=== PATIENT | male | born 1995 | race African-American/Black ===

== ENCOUNTER 2017-03-13 04:08 | Emergency (ER) | payer BC ==
[~2017-03-13] VITALS: Ht 185.4 cm; Wt 80.0 kg
[2017-03-13 04:10] VITALS: BP 130/66; PULSE 66; RESP 16; TEMP 98.5; O2SAT 100
[2017-03-13] MEDS ORDERED: SODIUM CHLOR 0.9% 1000 ML INJ 1,000 ML IV SCH (04:41)
--- NOTE | 2017-03-13 04:43 | PD ---
HPI Chief Complaint: GI Complaint Time Seen by Provider: 04:37 Travel History International Travel<30 days: No Contact w/Intl Traveler<30days: No Traveled to known affect area: No History of Present Illness HPI 21-year-old male here for evaluation of nausea and vomiting. Patient reports multiple episodes of vomiting since 9:30 PM yesterday evening. Emesis first consisted of food, now is bilious, nonbloody. He is also had a small amount of diarrhea. Reports that his younger niece and nephew at home has similar symptoms 2 days ago. He is having some intermittent epigastric discomfort. He drink alcohol occasionally, hasn't drink in a couple of days. He smokes marijuana occasionally. No other illicit drugs. No history of abdominal surgeries. PFSH Past Medical History Medical History: Denies Significant Hx Cancer: No Cardiovascular Problems: No Developmental Delay: No Diabetes: No Diminished Hearing: No Glaucoma: No Hepatitis: No Hiatal Hernia: No Hypertension: No Respiratory: No Immunizations Current: Yes Thyroid Disease: No Tetanus Vaccination: Unknown Influenza Vaccination: No Past Surgical History Surgical History: No Previous Surgery Pacemaker: No Other Surgery: No Social History Alcohol Use: Yes (OCC) Tobacco Use: No Substance Use: Yes (MARIJUANA) Allergies-Medications (Allergen,Severity, Reaction): Coded Allergies: No Known Allergies (Unverified , 03/13/17) Reported Meds & Prescriptions Reported Meds & Active Scripts Active Zofran Odt (Ondansetron Odt) 4 Mg Tab 4 Mg SL Q8HR PRN Review of Systems Except as stated in HPI: all other systems reviewed are Neg Physical Exam Narrative GENERAL: Well-developed, well-nourished, comfortable, no acute distress. SKIN: Focused skin assessment warm/dry. HEAD: Atraumatic. Normocephalic. EYES: Pupils equal and round. No scleral icterus. No injection or drainage. ENT: Mucous membranes pink and dry. NECK: Trachea midline. No JVD. CARDIOVASCULAR: Regular rate and rhythm. RESPIRATORY: No accessory muscle use. Clear to auscultation. Breath sounds equal bilaterally. GASTROINTESTINAL: Abdomen soft, non-tender, nondistended. Normal bowel sounds. MUSCULOSKELETAL: No obvious deformities. No clubbing. No cyanosis. No edema. NEUROLOGICAL: Awake and alert. No obvious cranial nerve deficits. Motor grossly within normal limits. Normal speech. PSYCHIATRIC: Appropriate mood and affect; insight and judgment normal. Data Data Last Documented VS Vital Signs Date Time Temp Pulse Resp B/P Pulse Ox O2 Delivery O2 Flow Rate FiO2 03/13/17 04:10 98.5 66 16 130/66 100 Orders Complete Blood Count With Diff (03/13/17 04:41) Comprehensive Metabolic Panel (03/13/17 04:41) Lipase (03/13/17 04:41) Iv Access Insert/Monitor (03/13/17 04:41) Ecg Monitoring (03/13/17 04:41) Oximetry (03/13/17 04:41) Ondansetron Inj (Zofran Inj) (03/13/17 04:45) Sodium Chlor 0.9% 1000 Ml Inj (Ns 1000 M (03/13/17 04:41) Sodium Chloride 0.9% Flush (Ns Flush) (03/13/17 04:45) Labs Laboratory Tests Test 03/13/17 04:45 White Blood Count 12.8 TH/MM3 Red Blood Count 5.63 MIL/MM3 Hemoglobin 14.2 GM/DL Hematocrit 44.1 % Mean Corpuscular Volume 78.4 FL Mean Corpuscular Hemoglobin 25.3 PG Mean Corpuscular Hemoglobin 32.3 % Concent Red Cell Distribution Width 15.2 % Platelet Count 192 TH/MM3 Mean Platelet Volume 8.6 FL Neutrophils (%) (Auto) 89.6 % Lymphocytes (%) (Auto) 3.3 % Monocytes (%) (Auto) 6.8 % Eosinophils (%) (Auto) 0.1 % Basophils (%) (Auto) 0.2 % Neutrophils # (Auto) 11.4 TH/MM3 Lymphocytes # (Auto) 0.4 TH/MM3 Monocytes # (Auto) 0.9 TH/MM3 Eosinophils # (Auto) 0.0 TH/MM3 Basophils # (Auto) 0.0 TH/MM3 CBC Comment DIFF FINAL Differential Comment Sodium Level 140 MEQ/L Potassium Level 4.1 MEQ/L Chloride Level 106 MEQ/L Carbon Dioxide Level 23.8 MEQ/L Anion Gap 10 MEQ/L Blood Urea Nitrogen 14 MG/DL Creatinine 0.86 MG/DL Estimat Glomerular Filtration 136 ML/MIN Rate Random Glucose 116 MG/DL Calcium Level 9.3 MG/DL Total Bilirubin 1.2 MG/DL Aspartate Amino Transf 22 U/L (AST/SGOT) Alanine Aminotransferase 29 U/L (ALT/SGPT) Alkaline Phosphatase 59 U/L Total Protein 7.7 GM/DL Albumin 4.2 GM/DL Lipase 94 U/L MDM Medical Decision Making Medical Screen Exam Complete: Yes Emergency Medical Condition: Yes Differential Diagnosis Gastroenteritis, dehydration, metabolic abnormality, cannabinoid hyperemesis syndrome, acute intra-abdominal pathology unlikely Narrative Course Vital signs show heart rate 66, blood pressure 130/66, pulse ox 100% on room air , oral temp of 98.5 from high. CBC shows WBC 12.8, hemoglobin 14.2, hematocrit 44.1, platelets 192. Neutrophils 89%. CMP is unremarkable. Patient was given a liter of IV fluids and IV Zofran and is feeling much better. He is tolerating clear liquids orally. His abdominal exam is benign. I do not believe that there is an acute surgical intra-abdominal process to warrant imaging at this time. Patient is likely suffering from a gastric enteritis. He is stable for discharge home with follow-up with his primary care physician this week. He was informed on when to return to the emergency department. He verbalizes understanding and agreement with plan. Diagnosis Primary Impression: Acute gastroenteritis Referrals: Primary Care Physician 3 days Additional Instructions: Follow-up with your primary care physician this week. See hydrated with plenty of fluids. Return to the emergency department for worsening symptoms or any other concerns. Scripts Ondansetron Odt (Zofran Odt)4 Mg Tab4 Mg SL Q8HR PRN (Nausea/Vomiting) #20 TAB Ref 0 Prov:Hernandez Hill MD 03/13/17 Ondansetron Odt (Zofran Odt)4 Mg Tab4 Mg SL Q8HR PRN (Nausea/Vomiting) #20 TAB Ref 0 Prov:Hernandez Hill MD 03/13/17 Disposition: 01 DISCHARGE HOME Condition: Stable Hernandez Hill MD Mar 13, 2017 04:43 Hernandez Hill MD Mar 13, 2017 04:43
[2017-03-13] MEDS ORDERED: ONDANSETRON HCL 4 MG/2 ML VIAL IVP ONE (04:45)
[2017-03-13] MEDS ORDERED: SODIUM CHLORIDE 0.9% FLUSH 10 ML FLUSH IV FLUSH PRN (04:45)
[2017-03-13 04:56] LABS: AUTOMATED NEUTROPHIL # 11.4 TH/MM3 (1.8-7.7); BASOPHIL % 0.2 % (0.0-2.0); EOSINOPHIL % 0.1 % (0.0-4.0); HEMATOCRIT 44.1 % (39.0-51.0); HEMO FLAGS DIFF FINAL; LYMPH % 3.3 % (9.0-44.0); LYMPHOCYTE # 0.4 TH/MM3 (1.0-4.8); MEAN CELL VOLUME 78.4 FL (80.0-100.0); MEAN CORPUSCULAR HEMOGLOBIN 25.3 PG (27.0-34.0); MEAN CORPUSCULAR HGB CONC 32.3 % (32.0-36.0); MONO % 6.8 % (0.0-8.0); NEUT % 89.6 % (16.0-70.0); PLATELET COUNT 192 TH/MM3 (150-450); RED BLOOD COUNT 5.63 MIL/MM3 (4.50-5.90); RED CELL DISTRIBUTION WIDTH 15.2 % (11.6-17.2); WHITE BLOOD COUNT 12.8 TH/MM3 (4.0-11.0)
[2017-03-13 05:37] LABS: ALT (GPT) 29 U/L (12-78)
[2017-03-13 05:39] LABS: ALKALINE PHOSPHATASE 59 U/L (45-117); TOTAL BILIRUBIN ADULT 1.2 MG/DL (0.2-1.0)
[2017-03-13 05:50] LABS: ANION GAP 10 MEQ/L (5-15); AST (GOT) 22 U/L (15-37); BICARBONATE 23.8 MEQ/L (21.0-32.0); BLOOD UREA NITROGEN 14 MG/DL (7-18); CHLORIDE 106 MEQ/L (98-107); GLOMERULAR FILTRATION RATE 136 ML/MIN (>89); POTASSIUM 4.1 MEQ/L (3.5-5.1); SODIUM (NA) 140 MEQ/L (136-145)
[2017-03-13] MEDS ORDERED: ZOFR4TAB3 SL ×2 (06:29→06:31)
== END 2017-03-13 06:58 | disposition home or self-care (01) ==
LOC: NEPE 04:08
DX: K52.9 Noninfective gastroenteritis and colitis, unspecified (principal)
CPT/HCPCS: 80053; 83690; 85025; 96361; 96374; 99284; J2405; J7030